=== PATIENT | male | born 1985 | race Caucasian/White ===

== ENCOUNTER 2017-03-18 15:10 | Emergency (ER) | payer OTHER ==
[~2017-03-18] VITALS: Ht 188 cm; Wt 81.8 kg
[2017-03-18 15:12] VITALS: BP 144/66; PULSE 78; TEMP 98
[2017-03-18] MEDS ORDERED: VALTREX1 GM PO (15:29)
== END 2017-03-18 16:42 | disposition home or self-care (01) ==
LOC: COL.ER 15:10
DX: L73.8 Other specified follicular disorders (principal); Z20.828 Contact with and (suspected) exposure to other viral communicable diseases